=== PATIENT | female | born 1995 ===

== ENCOUNTER 2018-02-22 12:57 | Emergency (ER) | payer OTHER ==
--- NOTE | 2018-02-22 14:19 | RAD ---
INDICATION: Short of breath COMPARISON: None TECHNIQUE: PA and lateral dual-energy views were obtained. FINDINGS: Bones/Soft Tissues: There are no acute bony findings. Cardiomediastinal: The cardiomediastinal silhouette is normal. Lungs: There are no infiltrates. Pleura: There are no pleural effusions. Other: None IMPRESSION: NORMAL CHEST.
--- NOTE | 2018-02-22 14:21 | UC ---
Cardiac HPI - HPI Summary HPI Summary: 23 year old female with prior history of panic attack here with chest pain and sob. Reports symptoms intermittent for 1 week, lasting few minutes to hours. Reports numbness tingling and numbness during this SOB episode. No exertional symptoms. No history of coagulopathy in the family. No prolonged immobilization. - History of Current Complaint Chief Complaint: UCChestPain Stated Complaint: CHEST COMPLAINT Time Seen by Provider: 02/22/18 13:22 Hx Last Menstrual Period: 01/22/18 Initial Severity: Mild Current Severity: Mild Pain Intensity: 7 Character: Irregular Associated Signs & Symptoms: Positive: Chest Pain, SOB - Allergy/Home Medications Allergies/Adverse Reactions: Allergies Allergy/AdvReac Type Severity Reaction Status Date / Time No Known Allergies Allergy Verified 02/22/18 13:25 Home Medications: Home Medications B/C 1 tab PO BEDTIME 02/22/18 [History] Loratadine [Claritin 10 MG CAP] 10 mg PO DAILY 02/22/18 [History Confirmed 02/22] PMH/Surg Hx/FS Hx/Imm Hx Previously Healthy: Yes - Surgical History Surgical History: None - Social History Alcohol Use: Weekly Substance Use Type: None Smoking Status (MU): Never Smoked Tobacco Review of Systems Constitutional: Negative Skin: Negative Eyes: Negative ENT: Negative Respiratory: Shortness Of Breath Cardiovascular: Palpitations Gastrointestinal: Negative Genitourinary: Negative Motor: Negative Neurovascular: Negative Musculoskeletal: Negative Neurological: Negative Psychological: Negative All Other Systems Reviewed And Are Negative: Yes Physical Exam Triage Information Reviewed: Yes Vital Signs: Initial Vital Signs Temp 37.1 C 02/22/18 13:19 Pulse 98 02/22/18 13:19 Resp 16 02/22/18 13:19 BP 144/97 02/22/18 13:19 Pulse Ox 100 02/22/18 13:19 Vital Signs Reviewed: Yes ENT Exam: Normal Respiratory Exam: Normal Cardiovascular Exam: Normal Abdominal Exam: Normal Neurological Exam: Normal Psychological Exam: Normal Diagnostics - EKG Cardiac Rate: NL Cardiac Rhythm: Sinus: Normal Ectopy: None - Differential Diagnoses - Chest Pain Differential Diagnosis/HQI/PQRI: Chest Wall, Lower Respiratory Infection - Clinical Impression Provider Diagnoses: Chest pain due to anxiety Discharge - Sign-Out/Discharge Documenting (check all that apply): Discharge/Admit/Transfer - Discharge Plan Condition: Good Disposition: HOME Patient Education Materials: Anxiety (ED) Forms: *Work Release Referrals: Kwabena Jernigan [Primary Care Provider] - Additional Instructions: If you continue to have the chest pain or sob, please follow up with your PMD. If you develop severe chest pain or sob, go to the nearest emergency department. - Billing Disposition and Condition Condition: GOOD Disposition: Home
== END 2018-02-22 14:40 | disposition home or self-care (01) ==
LOC: UCEAST 12:57
DX: R07.89 Other chest pain (principal); F41.9 Anxiety disorder, unspecified; R06.02 Shortness of breath; Z86.59 Personal history of other mental and behavioral disorders
CPT/HCPCS: 71046; 93005; 99201; G0463

== ENCOUNTER 2018-03-09 13:57 | Emergency (ER) | payer OTHER ==
[2018-03-09 16:11] LABS: INR 0.97 (0.77-1.02)
[2018-03-09 16:13] LABS: ABS Basophils 0 10^3/ul (0-0.2); ABS Eosinophils 0 10^3/ul (0-0.6); ABS Lymphocytes 2.7 10^3/ul (1.0-4.8); ABS Monocytes 0.4 10^3/ul (0-0.8); ABS Neutrophils 5.4 10^3/ul (1.5-7.7); ABS Nucleated RBC 0 10^3/ul; Eosinophil % 0.3 % (0-6); Hematocrit 35 % (35-47); Hemoglobin 12.9 g/dl (12.0-16.0); Lymphocyte % 31.6 % (25-47); Mean Corpuscular HGB Conc 37 g/dl (31-36); Mean Corpuscular Hemoglobin 32 pg (27-31); Mean Corpuscular Volume 87 fL (80-97); Mean Platelet Volume 9.5 um3 (7.4-10.4); Nucleated Red Blood Cells % 0; Platelet Count 211 10^3/ul (150-450); Red Blood Count 4.05 10^6/ul (4.00-5.40); Red Cell Distribution Width 12 % (10.5-15); White Blood Count 8.7 10^3/ul (3.5-10.8)
[2018-03-09 16:31] LABS: EGFR Non-African American 134.2 (>60)
[2018-03-09 17:43] LABS: Urine Appearance Clear; Urine Blood Negative (Negative); Urine Color Straw; Urine Ketones Negative (Negative); Urine Protein Negative (Negative); Urine Specific Gravity 1.003 (1.010-1.030); Urine Urobilinogen Negative (Negative)
[2018-03-09] MEDS ORDERED: Iohexol 350* (CONTRAST) 500 ML MDV IV ONE (17:58)
--- NOTE | 2018-03-09 18:36 | ED ---
HPI Chest Pain - HPI Summary HPI Summary: Patient presents with right-sided chest pain that started before February 22. This is associated with some shortness of breath. She was seen at [facility] and had a normal EKG as well as chest x-ray. She was diagnosed with anxiety and discharged for follow-up with [facility] and [facility]. Her symptoms have been persisting and she's developed a slight cough. She denies hemoptysis , fever, chills, back pain, fatigue. She has ongoing shortness of breath however so went to [facility] and [facility] yesterday. A d-dimer was ordered and was found to be less than 200. She is here today with ongoing symptoms of shortness of breath, feels that she can't get a deep breath and concern of right -sided chest pain. Right-sided chest pain is dull at rest, sharp with inspiration. No position makes this pain better or worse. Pain is also not exacerbated by eating or drinking. She denies history or symptoms of GERD. She denies wheezing or productive cough and no history of asthma. She denies environmental changes or exposures to chemicals, mold, new foods, medication, etc. She feels like this is one of the lower stress times in her life and she has good coping mechanisms for her stress. She actively participates in yoga. Leading up to this event, she admits she took a bus ride between [facility] and fell asleep without moving the entire time. Additionally she is on control and is exposed to secondhand smoke but does not smoke herself. No personal or family history of cancer or bleeding disorders. No recent trauma. 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 Hx Last Menstrual Period: 01/22/18 Pain Intensity: 6 - Allergy/Home Medications Allergies/Adverse Reactions: Allergies Allergy/AdvReac Type Severity Reaction Status Date / Time No Known Allergies Allergy Verified 03/09/18 14:17 Home Medications: Home Medications Eth Estradiol/Drospirenone(NF) [Gabriela 28(NF)] 1 tab PO DAILY 03/09/18 [History Confirmed 03/09/18] PMH/Surg Hx/FS Hx/Imm Hx Previously Healthy: Yes Endocrine/Hematology History: Denies: Hx Anticoagulant Therapy, Hx Blood Disorders, Hx Diabetes, Hx Thyroid Disease, Hx Anemia, Hx Coagulopothy Cardiovascular History: Denies: Hx Aneurysm, Hx Atrial Fibrillation, Hx Congenital Heart Disease, Hx Hypotension, Hx Hypertension, Hx Myocardial Infarction Respiratory History: Denies: Hx Asthma, Hx Chronic Obstructive Pulmonary Disease (COPD), Hx Pneumonia, Hx Pulmonary Edema, Hx Pulmonary Embolism, Hx Seasonal Allergies, Hx Sleep Apnea GI History: Denies: Hx Gall Bladder Disease, Hx Gastroesophageal Reflux Disease, Hx Gastrointestinal Bleed, Hx Ulcer History: Denies: Hx Renal Disease Psychiatric History: Reports: Hx Anxiety Infectious Disease History: No Infectious Disease History: Denies: Traveled Outside the [place] in Last 30 Days - Social History Occupation: Student Alcohol Use: Weekly Hx Substance Use: No Substance Use Type: Reports: None Hx Tobacco Use: No Smoking Status (MU): Never Smoked Tobacco Review of Systems Constitutional: Negative Negative: Fever, Chills, Fatigue Eyes: Negative ENT: Negative Positive: Chest Pain, Other - increased HR Positive: Shortness Of Breath, Cough Gastrointestinal: Negative Positive: no symptoms reported Musculoskeletal: Negative Skin: Negative Neurological: Negative Psychological: Other - concerned about not being able to take deep breathes All Other Systems Reviewed And Are Negative: Yes Physical Exam Triage Information Reviewed: Yes Vital Signs On Initial Exam: Initial Vitals Temp Pulse Resp BP Pulse Ox 99.3 F 116 20 150/116 100 03/09/18 14:13 03/09/18 14:13 03/09/18 14:13 03/09/18 14:13 03/09/18 14:13 Vital Signs Reviewed: Yes Appearance: Positive: Well-Appearing, No Pain Distress - but pt does reveal intermittent efforts at deep breathes where she is lifting her shoulders - no tripodding, no signs of cyanosis, no stridor, no wheezing - she breathes calmly at other times, Well-Nourished Skin: Positive: Warm, Skin Color Reflects Adequate Perfusion, Dry Head/Face: Positive: Normal Head/Face Inspection Eyes: Positive: Normal, EOMI, SON, Conjunctiva Clear. Negative: Conjunctiva Inflammed, Discharge ENT: Positive: Normal ENT inspection, Hearing grossly normal, Pharynx normal - mucosa moist, TMs normal. Negative: Nasal congestion, Nasal drainage Neck: Positive: Supple, Nontender, No Lymphadenopathy - no gross thyromegaly Respiratory/Lung Sounds: Positive: Clear to Auscultation, Breath Sounds Present. Negative: Decreased Breath Sounds, Rales, Rhonchi, Subcutaneous Emphysema, Stridor, Tracheal Deviation, Wheezes, Unable to speak in full sentences, Fatigue Cardiovascular: Positive: Pulses are Symmetrical in both Upper and Lower Extremities, S1, S2. Negative: Murmur, Rub, Tachycardia, Leg Edema Left, Leg Edema Right Abdomen Description: Positive: Nontender, No Organomegaly, Soft Bowel Sounds: Positive: Present Musculoskeletal: Positive: Normal, Strength/ROM Intact Neurological: Positive: Normal, Sensory/Motor Intact, Alert, Oriented to Person Place, Time, CN Intact II-III Psychiatric: Positive: Normal Diagnostics - Vital Signs Vital Signs Temp Pulse Resp BP Pulse Ox 03/09/18 17:23 86 132/101 94 03/09/18 17:00 105 98 03/09/18 16:53 102 125/93 98 03/09/18 16:23 89 115/83 84 03/09/18 16:00 86 99 03/09/18 15:59 86 117/77 99 03/09/18 15:23 119 181/101 98 03/09/18 15:16 117 100 03/09/18 14:13 99.3 F 116 20 150/116 100 - Laboratory Lab Results: Lab Results 03/09/18 03/09/18 03/09/18 Range/Units 15:45 15:45 15:45 WBC 8.7 (3.5-10.8) 10^3/ul RBC 4.05 (4.00-5.40) 10^6/ul Hgb 12.9 (12.0-16.0) g/dl Hct 35 (35-47) % MCV 87 (80-97) fL MCH 32 H (27-31) pg MCHC 37 H (31-36) g/dl RDW 12 (10.5-15) % Plt Count 211 (150-450) 10^3/ul MPV 9.5 (7.4-10.4) um3 Neut % (Auto) 62.8 (38-83) % Lymph % (Auto) 31.6 (25-47) % Jasper % (Auto) 4.7 (0-7) % Eos % (Auto) 0.3 (0-6) % Baso % (Auto) 0.6 (0-2) % Absolute Neuts (auto) 5.4 (1.5-7.7) 10^3/ul Absolute Lymphs (auto) 2.7 (1.0-4.8) 10^3/ul Absolute Monos (auto) 0.4 (0-0.8) 10^3/ul Absolute Eos (auto) 0 (0-0.6) 10^3/ul Absolute Basos (auto) 0 (0-0.2) 10^3/ul Absolute Nucleated RBC 0 10^3/ul Nucleated RBC % 0 INR (Anticoag Therapy) 0.97 (0.77-1.02) APTT 26.9 (26.0-36.3) seconds Sodium 138 (135-145) mmol/L Potassium 3.3 L (3.5-5.0) mmol/L Chloride 105 (101-111) mmol/L Carbon Dioxide 20 L (22-32) mmol/L Anion Gap 13 H (2-11) mmol/L BUN 8 (6-24) mg/dL Creatinine 0.56 (0.51-0.95) mg/dL Est GFR ( Amer) 162.3 (>60) Est GFR (Non-Af Amer) 134.2 (>60) BUN/Creatinine Ratio 14.3 (8-20) Glucose 169 H (70-100) mg/dL Lactic Acid (0.5-2.0) mmol/L Calcium 9.4 (8.6-10.3) mg/dL Magnesium 1.9 (1.9-2.7) mg/dL Total Bilirubin 0.80 (0.2-1.0) mg/dL AST 12 L (13-39) U/L ALT 4 L (7-52) U/L Alkaline Phosphatase 41 (34-104) U/L Troponin I 0.00 (<0.04) ng/mL Total Protein 7.1 (6.4-8.9) g/dL Albumin 4.3 (3.2-5.2) g/dL Globulin 2.8 (2-4) g/dL Albumin/Globulin Ratio 1.5 (1-3) TSH 1.25 (0.34-5.60) mcIU/mL Beta HCG, Quant < 0.60 mIU/mL Urine Color Urine Appearance Urine pH (5-9) Ur Specific Evangeline (1.010-1.030) Urine Protein (Negative) Urine Ketones (Negative) Urine Blood (Negative) Urine Nitrate (Negative) Urine Bilirubin (Negative) Urine Urobilinogen (Negative) Ur Leukocyte Esterase (Negative) Urine Glucose (Negative) 03/09/18 03/09/18 Range/Units 15:45 17:36 WBC (3.5-10.8) 10^3/ul RBC (4.00-5.40) 10^6/ul Hgb (12.0-16.0) g/dl Hct (35-47) % MCV (80-97) fL MCH (27-31) pg MCHC (31-36) g/dl RDW (10.5-15) % Plt Count (150-450) 10^3/ul MPV (7.4-10.4) um3 Neut % (Auto) (38-83) % Lymph % (Auto) (25-47) % Jasper % (Auto) (0-7) % Eos % (Auto) (0-6) % Baso % (Auto) (0-2) % Absolute Neuts (auto) (1.5-7.7) 10^3/ul Absolute Lymphs (auto) (1.0-4.8) 10^3/ul Absolute Monos (auto) (0-0.8) 10^3/ul Absolute Eos (auto) (0-0.6) 10^3/ul Absolute Basos (auto) (0-0.2) 10^3/ul Absolute Nucleated RBC 10^3/ul Nucleated RBC % INR (Anticoag Therapy) (0.77-1.02) APTT (26.0-36.3) seconds Sodium (135-145) mmol/L Potassium (3.5-5.0) mmol/L Chloride (101-111) mmol/L Carbon Dioxide (22-32) mmol/L Anion Gap (2-11) mmol/L BUN (6-24) mg/dL Creatinine (0.51-0.95) mg/dL Est GFR ( Amer) (>60) Est GFR (Non-Af Amer) (>60) BUN/Creatinine Ratio (8-20) Glucose (70-100) mg/dL Lactic Acid 2.3 H* (0.5-2.0) mmol/L Calcium (8.6-10.3) mg/dL Magnesium (1.9-2.7) mg/dL Total Bilirubin (0.2-1.0) mg/dL AST (13-39) U/L ALT (7-52) U/L Alkaline Phosphatase (34-104) U/L Troponin I (<0.04) ng/mL Total Protein (6.4-8.9) g/dL Albumin (3.2-5.2) g/dL Globulin (2-4) g/dL Albumin/Globulin Ratio (1-3) TSH (0.34-5.60) mcIU/mL Beta HCG, Quant mIU/mL Urine Color Straw Urine Appearance Clear Urine pH 8.0 (5-9) Ur Specific Evangeline 1.003 L (1.010-1.030) Urine Protein Negative (Negative) Urine Ketones Negative (Negative) Urine Blood Negative (Negative) Urine Nitrate Negative (Negative) Urine Bilirubin Negative (Negative) Urine Urobilinogen Negative (Negative) Ur Leukocyte Esterase Negative (Negative) Urine Glucose Negative (Negative) Result Diagrams: 03/09/18 15:45 03/09/18 15:45 Lab Statement: Any lab studies that have been ordered have been reviewed, and results considered in the medical decision making process. Chest Pain Course/Dx - Course Course Of Treatment: Pt presents w/ SOB, cough, Rt sided CP and intermittent lightheadedness in the face of taking control x few years and after a road trip where she didn't move for many hours. Her ECG reveals tachycardia w/ sinus rhythm and no ST elevations or blocks. Her CXR performed on 02/22/2018 is w /o acute findings - discussed potentially repeating but will wait for other tests to return to decide which imaging will be best. Labs reveal low CO2 and high anion gap w/ slightly elevated glucose and lactic acid of 2.3. Although these could be results of hyperventilation, discussed case with Dr. Marte and he explained D-dimer only remains elevated in the initial 7 day window of clot formation therefore negative D-dimer yesterday may not be accurate. Pt sent to CT and pending results. Signed out to Kieran Mccarty PA-C in stable condition. - Diagnoses Provider Diagnoses: Right-sided chest pain, Shortness of breath, Tachycardia Discharge - Sign-Out/Discharge Documenting (check all that apply): Sign-Out Patient Signing out patient TO: Kieran Mccarty - Discharge Plan Condition: Stable Disposition: HOME Patient Education Materials: Chest Pain (ED), Chest Wall Pain (ED) Referrals: No Primary Care Phys,NOPCP [Primary Care Provider] - Additional Instructions: Follow-up with primary care. Return to ED for any new or worsening symptoms - Billing Disposition and Condition Condition: STABLE Disposition: Home
--- NOTE | 2018-03-09 18:58 | RAD ---
INDICATION: Shortness of breath. RIGHT chest pain. Cough. Assess for PE. COMPARISON: Chest radiograph of the same date. TECHNIQUE: Multidetector CT images were obtained from the lung apices to the upper abdomen with 61 mL Omnipaque 350 IV contrast. Pulmonary angiogram protocol. Multiplanar reformation including with maximum intensity projection. REPORT: No focal pulmonary lesion, compelling alveolar consolidation, pleural effusion, pneumothorax. Normal-appearing residual thymic tissue at the anterior mediastinum. Negative for thoracic lymphadenopathy, cardiomegaly, or pericardial effusion. Unremarkable thoracic aorta accounting for motion artifact. No filling defects are identified from the main to the subsegmental pulmonary arteries to indicate presence of a pulmonary embolism. Unremarkable Limited images through the upper abdomen. Negative for thoracic fractures or suspicious focal osseous lesions. Negative for soft tissue plane hematoma or conspicuous focal lesions. IMPRESSION: #. No evidence for pulmonary embolism. #. Negative exam.
--- NOTE | 2018-03-09 19:12 | PN ---
Progress Note - Progress Note Date of Service: 03/09/18 Note: Patient signed out to me from Marylu Noel pending CTA chest results. CT chest negative for PE or any other acute abnormality. Vital signs stable and within normal limits. Labs and imaging have been reviewed. Patient will be discharged to follow-up with primary care.
[2018-03-09 19:19] VITALS: BP 134/99
== END 2018-03-09 19:19 | disposition home or self-care (01) ==
LOC: ED 13:57
DX: R07.9 Chest pain, unspecified (principal); R06.02 Shortness of breath; R00.0 Tachycardia, unspecified
CPT/HCPCS: 36415; 71275; 80053; 81003; 83605; 83735; 84443; 84484; 84702; 85025; 85610; 85730; 93005; 99282; Q9967